=== PATIENT | female | born 1995 | race Caucasian/White ===

== ENCOUNTER 2018-05-09 07:17 | Emergency (ER) | payer OTHER ==
[2018-05-09 07:21] VITALS: BP 113/62; PULSE 94; TEMP 99.4; BMI 23.0
--- NOTE | 2018-05-09 08:04 | PDOC ---
History of Present Illness - General Chief Complaint: Pain Stated Complaint: 9 WEEKS PREGNANCT/ABDOMINAL PAIN Time Seen by Provider: 05/09/18 08:04 Past History - Past Medical History Allergies/Adverse Reactions: Allergies Allergy/AdvReac Type Severity Reaction Status Date / Time No Known Allergies Allergy Verified 05/09/18 07:21 Home Medications: Ambulatory Orders Pnv with Ca,No.71/Iron/FA [ Vitamin Tablet] 1 each PO DAILY 11/13/14 Acetaminophen [Tylenol .Regular Strength -] 650 mg PO Q3H PRN #20 tablet Benzocaine [Americaine 20% [place] -] 1 spray TP PRN PRN #1 spraybtl 12/06/14 Ferrous Sulfate [Feosol] 325 mg PO BID #60 ud 12/06/14 Ibuprofen [Motrin -] 200 mg PO Q4H PRN #20 tablet 12/06/14 Vitamins (Sjr) - 1 tab PO DAILY #30 tablet 12/06/14 Witch Zandra 50% (Tucks) [Tucks Pads -] 1 pad TP PRN PRN #1 pad 12/06/14 Asthma: No Cancer: No Cardiac Disorders: No COPD: No Diabetes: No HTN: No Seizures: No Thyroid Disease: No - Reproductive History Therapeutic (s) & number: No - Immunization History Immunization Up to Date: Yes - Suicide/Smoking/Psychosocial Hx Smoking Status: No Smoking History: Never smoked Have you smoked in the past 12 months: No Number of Cigarettes Smoked Daily: 0 Information on smoking cessation initiated: No Hx Alcohol Use: No Drug/Substance Use Hx: No Substance Use Type: None Hx Substance Use Treatment: No *Physical Exam - Vital Signs Last Vital Signs Temp Pulse Resp BP Pulse Ox 99.4 F 94 H 16 113/62 100 05/09/18 07:18 05/09/18 07:18 05/09/18 07:18 05/09/18 07:18 05/09/18 07:18
--- NOTE | 2018-05-09 08:13 | PDOC ---
History of Present Illness - General Chief Complaint: Pain Stated Complaint: 9 WEEKS PREGNANCT/ABDOMINAL PAIN Time Seen by Provider: 05/09/18 08:04 History Source: Patient Exam Limitations: No Limitations - History of Present Illness Initial Comments: 05/09/18 08:21 This is a 22 yo F LMP March 09, 2018 no significant PMH She presents to the ER with a complaint of upper abdominal pain since last night with spotting Pain is cramping, stabbing, intermittent, sudden onset, Was 10/10 now 8/10, worsens when she bends forward No prior episodes like this Spotting was noted at 4am when she went to the bathroom, noted it when she wiped Denies CP, SOB, N, D, Fevers, Dysuria Tried drinking tea and threw it up No heavy lifting, last sexual activity 1 week ago Seen bt [employer] 1 week ago PMH: denies PSH: denies No STI, no fibroids, no cysts Meds: denies ALL: NKDA Social: ROS: GENERAL/CONSTITUTIONAL: No: fever, chills, weakness, loss of appetite. HEAD, EYES, EARS, NOSE AND THROAT: No: change in vision, ear pain, discharge, sore throat, throat swelling. CARDIOVASCULAR: No: chest pain, lightheadedness, palpitations, syncope RESPIRATORY: No: cough, shortness of breath, wheezing, hemoptysis, stridor. GASTROINTESTINAL: Yes: Abdominal pain, vomiting x 1 No: nausea, diarrhea, GENITOURINARY: No: dysuria, hematuria, frequency, urgency, flank pain. MUSCULOSKELETAL: No: back pain, neck pain, joint pain, muscle swelling or pain SKIN AND BREASTS: No: lesions, pallor, rash or easy bruising. NEUROLOGIC: No: headache, vertigo, paresthesias, weakness ENDOCRINE: No: unexplained weight gain or loss HEMATOLOGIC/LYMPHATIC: No: anemia, easy bleeding, swelling nodes. PE: GENERAL: The patient is in no acute distress. HEAD: Normal EYES: PERRLA, EOMI, sclera anicteric, conjunctiva clear. ENT: Ears normal, nares patent, oropharynx clear without exudates. Moist mucous membranes. NECK: Normal range of motion, supple LUNGS: Breath sounds equal, clear to auscultation bilaterally. No wheezes, and no crackles. HEART:Regular rate and rhythm, normal S1 and S2 without murmur, rub or gallop. ABDOMEN: Soft, TTP LLQ/epigastric tenderness, No involuntary guarding, no rebound. EXTREMITIES: Normal range of motion NEUROLOGICAL: Cranial nerves II through XII grossly intact. Normal speech. No focal neurological deficits. MUSCULOSKELETAL: Back non-tender to palpation, no CVA tenderness SKIN: Warm, Dry, normal turgor, no rashes or lesions noted. 05/09/18 08:31 05/09/18 08:34 05/09/18 09:30 Past History - Past Medical History Allergies/Adverse Reactions: Allergies Allergy/AdvReac Type Severity Reaction Status Date / Time No Known Allergies Allergy Verified 05/09/18 07:21 Home Medications: Ambulatory Orders Pnv with Ca,No.71/Iron/FA [ Vitamin Tablet] 1 each PO DAILY 11/13/14 Cephalexin [Keflex] 500 mg PO Q6H #12 capsule 05/09/18 Metoclopramide HCl [Reglan] 10 mg PO BID PRN #10 tablet 05/09/18 No122/Iron/Folic Acid [ Multi Tablet] 1 each PO DAILY #60 tablet 05/09/18 Asthma: No Cancer: No Cardiac Disorders: No COPD: No Diabetes: No HTN: No Seizures: No Thyroid Disease: No - Reproductive History Therapeutic (s) & number: No - Immunization History Immunization Up to Date: Yes - Suicide/Smoking/Psychosocial Hx Smoking Status: No Smoking History: Never smoked Have you smoked in the past 12 months: No Number of Cigarettes Smoked Daily: 0 Information on smoking cessation initiated: No Hx Alcohol Use: No Drug/Substance Use Hx: No Substance Use Type: None Hx Substance Use Treatment: No *Physical Exam - Vital Signs Last Vital Signs Temp Pulse Resp BP Pulse Ox 99.4 F 94 H 16 113/62 100 05/09/18 07:18 05/09/18 07:18 05/09/18 07:18 05/09/18 07:18 05/09/18 07:18 ED Treatment Course - LABORATORY CBC & Chemistry Diagram: 05/09/18 08:51 05/09/18 08:51 Medical Decision Making - Medical Decision Making 05/09/18 09:30 Laboratory Tests 05/09/18 08:51 WBC 9.7 Hgb 12.7 Hct 36.1 D Plt Count 186 D 05/09/18 10:26 Laboratory Tests 05/09/18 05/09/18 08:51 08:51 Beta HCG, Quant 38655.4 Urine Ketones Negative Urine Blood Negative Ur Leukocyte Esterase Trace Urine WBC (Auto) 3 Urine RBC (Auto) 1 US 05/09/18 10:28 Laboratory Tests 05/09/18 08:51 Blood Type O POSITIVE 05/09/18 11:[address] Mccarthy Pt US demonstrates 9 week gestation, FHR 150, Probable failed twin gestation moderate subchorionic hemorrage Right ovary with cyst, nml flow Left ovary nml vascular flow Call placed to Tana Fleming pt is consultant I have reviewed this patient's case with the nurse Radha They are awaiting her call for an appointment within 1 week *DC/Admit/Observation/Transfer Diagnosis at time of Disposition: Vaginal bleeding in , Abdominal pain affecting - Discharge Dispostion Disposition: HOME Condition at time of disposition: Stable Decision to Admit order: No - Prescriptions Prescriptions: Cephalexin [Keflex] 500 mg PO Q6H #12 capsule Metoclopramide HCl [Reglan] 10 mg PO BID PRN #10 tablet PRN Reason: Nausea No122/Iron/Folic Acid [ Multi Tablet] 1 each PO DAILY #60 tablet - Referrals Referrals: Mallory Fleming MD [Certified Nurse Media Marketing Specialist] - - Patient Instructions Printed Discharge Instructions: DI for Hyperemesis Gravidarum, Vaginal Bleeding During , DI for Abdominal Pain -- Early Additional Instructions: Ms Vazquez Thank you for coming in to the ER today Please be sure to follow up with Dr Tana Fleming You will need a repeat Ultrasound within 1 week return to the ER IMMEDIATELY for severe pain, heavy vaginal bleeding - saturating 2 pads/hour x 2 hours, dizziness, lightheadedness, any other concerns You can take reglan if needed for severe nausea, but start with trying tea - Post Discharge Activity
[2018-05-09] MEDS ORDERED: METOCLOPRAMIDE HCL INJECTION 10 MG/2 ML VIAL IVPUSH ONE (08:39)
[2018-05-09] MEDS ORDERED: SODIUM CHLORIDE 1,000 ML IV STA (08:39)
[2018-05-09 09:06] LABS: BASO % 0.3 % (0-2.0); EOS % 0.3 % (0-4.5); HEMATOCRIT 36.1 % (32.4-45.2); HEMOGLOBIN 12.7 GM/dL (10.7-15.3); LYMPH % 9.3 % (8-40); MCH 30.3 pg (25.7-33.7); MCHC 35.3 g/dl (32.0-36.0); MEAN PLT VOLUME 9.7 fl (7.5-11.1); MONO % 5.3 % (3.8-10.2); NEUT % 84.8 % (42.8-82.8); PLATELET COUNT 186 K/MM3 (134-434); RDW 12.8 % (11.6-15.6); WHITE BLOOD COUNT 9.7 K/mm3 (4.0-10.0)
[2018-05-09 09:24] LABS: URINE APPEARANCE SLCLOUDY; URINE BILIRUBIN NEGATIVE (<2.0 mg/dL); URINE COLOR YELLOW; URINE GLUCOSE (UA) NEGATIVE (NEGATIVE); URINE KETONE NEGATIVE (NEGATIVE); URINE LEUK ESTERASE TRACE (NEGATIVE); URINE NITRITE NEGATIVE (NEGATIVE); URINE PROTEIN NEGATIVE (NEGATIVE); URINE UROBILINOGEN NEGATIVE mg/dL (0.2-1.0)
[2018-05-09 09:34] LABS: EPI CELLS RARE /HPF (FEW); URINE BACTERIA RARE /hpf (NONE SEEN); URINE MUCUS RARE
[2018-05-09 09:50] LABS: ALBUMIN 3.5 g/dl (3.4-5.0); ANION GAP 11 MMOL/L (8-16); BLOOD UREA NITROGEN 8 mg/dL (7-18); CALCIUM 8.7 mg/dL (8.5-10.1); CHLORIDE 105 mmol/L (98-107); CO2 22 mmol/L (21-32); GLUCOSE,RANDOM 87 mg/dL (74-106); POTASSIUM 3.8 mmol/L (3.5-5.1); SODIUM 138 mmol/L (136-145)
[2018-05-09 10:10] LABS: ALK PHOS 46 U/L (45-117); BILIRUBIN,TOTAL 0.5 mg/dL (0.2-1.0); CREATININE 0.3 mg/dL (0.55-1.02); SGOT/AST 16 U/L (15-37); SGPT/ALT 18 U/L (12-78); TOT PROT 6.9 g/dl (6.4-8.2)
[2018-05-09] MEDS ORDERED: ACETAMINOPHEN 325 MG TABLET (FP) PO ONE (10:28)
[2018-05-09] MEDS ORDERED: RANITIDINE HCL 150 MG TABLET (FP) PO ONE (10:29)
[2018-05-09] MEDS ORDERED: METOCLOPRAMIDE HCL INJECTION 10 MG/2 ML VIAL ONE (10:43)
[2018-05-09] MEDS ORDERED: ACETAMINOPHEN 325 MG TABLET (FP) ONE (11:13)
[2018-05-09] MEDS ORDERED: RANITIDINE HCL 150 MG TABLET (FP) ONE (11:13)
== END 2018-05-09 12:33 | disposition home or self-care (01) ==
LOC: JER 07:17
PROC: 3E0337Z Introduction of Electrolytic and Water Balance Substance into Peripheral Vein, Percutaneous Approach (ICD-10-PCS; principal; 2018-05-09)
DX: O26.891 Other specified pregnancy related conditions, first trimester (principal); O20.8 Other hemorrhage in early pregnancy; Z3A.09 9 weeks gestation of pregnancy
CPT/HCPCS: 36415; 76817-TC; 80053; 81003; 81015; 84702; 85025; 86850; 86900; 86901; 87086; 96360; 96361; 99282-25; J7030

== ENCOUNTER 2018-11-24 03:28 | Inpatient (IN) | payer OTHER ==
[2018-11-24] MEDS ORDERED: PROMETHAZINE HCL 25 MG/1 ML VIAL IVPB ONE (07:27)
[2018-11-24] MEDS ORDERED: BUTORPHANOL TARTRATE 1 MG/ML VIAL IVPUSH PRN (07:27)
--- NOTE | 2018-11-24 07:34 | HP ---
Past Medical History - Primary Care Physician PCP:: Bay Harris - Admission Chief Complaint: 37.4 weeks, labor History of Present Illness: 23 yo f g 2 p1 0 0 1, edc 12/11/18 , 37.4 weeks, c/o contraction, no rom, fhr cat 1, irregular contraction History Source: Patient Limitations to Obtaining History: No Limitations - Past Medical History ...: 2 ...Para: 1 ...Term: 1 ...: 0 ...EDC by [facility]: 12/11/18 Infectious Disease: Yes: STD's (chlamydia treated on 05/2014, repeat culture neg) - Past Surgical History Past Surgical History: Yes: Tonsillectomy (age 13 yrs) Hx Myomectomy: No Hx Transabdominal Cerclage: No - Smoking History Smoking history: Never smoked Have you smoked in the past 12 months: No Aproximately how many cigarettes per day: 0 - Alcohol/Substance Use Hx Alcohol Use: No - Social History Usual Living Arrangement: Yes: With Spouse History of Recent Travel: No Home Medications - Allergies Allergies/Adverse Reactions: Allergies Allergy/AdvReac Type Severity Reaction Status Date / Time No Known Allergies Allergy Verified 10/09/18 17:15 - Home Medications Home Medications: Ambulatory Orders Pnv with Ca,No.71/Iron/FA [ Vitamin Tablet] 1 each PO DAILY 11/13/14 Cephalexin [Keflex] 500 mg PO Q6H #12 capsule 05/09/18 Metoclopramide HCl [Reglan] 10 mg PO BID PRN #10 tablet 05/09/18 No122/Iron/Folic Acid [ Multi Tablet] 1 each PO DAILY #60 tablet 05/09/18 Review of Systems - Review of Systems Constitutional: reports: No Symptoms Eyes: reports: No Symptoms HENT: reports: No Symptoms Neck: reports: No Symptoms Cardiovascular: reports: No Symptoms Respiratory: reports: No Symptoms Gastrointestinal: reports: No Symptoms Genitourinary: reports: No Symptoms Breasts: reports: No Symptoms Reported Musculoskeletal: reports: No Symptoms Integumentary: reports: No Symptoms Neurological: reports: No Symptoms Endocrine: reports: No Symptoms Hematology/Lymphatic: reports: No Symptoms Psychiatric: reports: No Symptoms Physical Exam - Maternity Constitutional: Yes: Well Nourished, No Distress, Calm Eyes: Yes: WNL, Conjunctiva Clear, EOM Intact HENT: Yes: WNL, Atraumatic, Normocephalic Neck: Yes: WNL, Supple, Trachea Midline Cardiovascular: Yes: WNL, Regular Rate and Rhythm Breast(s): Yes: WNL - Abdominal Exam/OB Fundal Height: 38 Number of Fetuses: Single Presentation: Vertex Contractions: Yes Regularity: Irregular Intensity: Mod/Strong Monitor Mode: External Heart Rate Location: [facility] Category: I Accelerations: Uniform - Vaginal Exam/OB Vaginal Bleediing: No Dilatation (cm): 3 cm Effacement (%): 80 Amniotic Membrane Status: Bulging Presentation: Vertex/Position Station: -2 - Physical Exam Musculoskeletal: Yes: WNL Edema: Yes Edema: LLE: Trace, RLE: Trace Deep Tendon Reflex Grade: Normal +2 Psychiatric: Yes: WNL Hemorrhage Risk Assessment - Risk Factors Medium Risk Factors: Yes: None High Risk Factors: Yes: None Risk Score: 1 Risk Level: Medium Risk Problem List - Problems (1) with 37 weeks completed gestation Code(s): Z3A.37 - 37 WEEKS GESTATION OF (2) Labor established Code(s): ILR6782 - Assessment/Plan admit, fhm pain management
[2018-11-24 09:25] VITALS: BMI 23.8
[2018-11-24 10:40] LABS: BASO % 0.6 % (0-2.0); EOS % 0.2 % (0-4.5); HEMATOCRIT 31.9 % (32.4-45.2); LYMPH % 19.6 % (8-40); MCH 27.7 pg (25.7-33.7); MCHC 34.5 g/dl (32.0-36.0); MEAN CELL VOLUME 80.5 fl (80-96); MEAN PLT VOLUME 11.8 fl (7.5-11.1); MONO % 5.3 % (3.8-10.2); NEUT % 74.3 % (42.8-82.8); PLATELET COUNT 136 K/MM3 (134-434); RBC 3.96 M/mm3 (3.60-5.2); RDW 13.7 % (11.6-15.6); WHITE BLOOD COUNT 7.4 K/mm3 (4.0-10.0)
[2018-11-24 10:52] LABS: INR 0.92 (0.83-1.09); PROTHROMBIN TIME (PATIENT) 10.8 SEC (9.7-13.0)
[2018-11-24 10:55] LABS: ACTIVATED PTT 26.3 SECONDS (25.2-36.5)
[2018-11-24 11:24] LABS: ANION GAP 7 MMOL/L (8-16); BLOOD UREA NITROGEN 7 mg/dL (7-18); CALCIUM 8.4 mg/dL (8.5-10.1); CHLORIDE 108 mmol/L (98-107); CO2 21 mmol/L (21-32); CREATININE 0.5 mg/dL (0.55-1.3); GLUCOSE,RANDOM 98 mg/dL (74-106); POTASSIUM 3.9 mmol/L (3.5-5.1); SODIUM 136 mmol/L (136-145)
[2018-11-24] MEDS ORDERED: DEXTROSE 5%-LACTATED RINGERS 1,000 ML IV SCH (13:00)
[2018-11-24] MEDS ORDERED: OXYTOCIN 30 UNITS in 0.9% NS 30 UNIT/500 ML INFUS.BAG IVPB ONE (15:05)
--- NOTE | 2018-11-24 16:40 | PN ---
Progress Note (short form) - Note Progress Note: 3:03 pm cx 5 cm 80 vx -2 mi,bulging , arom, clear, fhr cat 1 , irregular contraction, AROM, clear, fhr cat 1, advised pitocin stimularion, rba discussed Problem List - Problems (1) with 37 weeks completed gestation Code(s): Z3A.37 - 37 WEEKS GESTATION OF (2) Labor established Code(s): JCC6522 -
[2018-11-24] MEDS ORDERED: OXYTOCIN 30 UNITS in 0.9% NS 30 UNIT/500 ML INFUS.BAG IVPB SCH (16:45)
[2018-11-24] MEDS ORDERED: BUTORPHANOL TARTRATE 1 MG/ML VIAL ONE ×2 (19:24)
[2018-11-24] MEDS ORDERED: PROMETHAZINE HCL 25 MG/1 ML VIAL ONE (19:25)
--- NOTE | 2018-11-24 21:03 | PN ---
Progress Note (short form) - Note Progress Note: cx 7 cm 80 vx -1 mr , fhr cat 1, contraction q 2 min , Problem List - Problems (1) with 37 weeks completed gestation Code(s): Z3A.37 - 37 WEEKS GESTATION OF (2) Labor established Code(s): NCB7018 -
[2018-11-24] MEDS ORDERED: OXYTOCIN 20 UNITS in 0.9% NS 20 UNIT/1,000 ML INFUS.BAG IV ONE ×2 (21:52→23:13)
[2018-11-24] MEDS ORDERED: BISACODYL 10 MG SUPP.RECT RC PRN (22:37)
[2018-11-24] MEDS ORDERED: BENZOCAINE 28 GM HEMORRHOIDAL OINTMENT TP PRN (22:37)
[2018-11-24] MEDS ORDERED: METHYLERGONOVINE MALEATE 0.2 MG/1 ML AMP IM PRN (22:37)
[2018-11-24] MEDS ORDERED: D5W-LR W/ 20 UNITS OXYTOCIN 1,000 ML IV SCH (22:45)
[2018-11-24] MEDS ORDERED: OXYTOCIN 20 UNITS in 0.9% NS 20 UNIT/1,000 ML INFUS.BAG IV SCH (22:45)
[2018-11-24 23:27] LABS: ARTERIAL BLD GAS O2 SATURATION 85.5 % (95-98); ARTERIAL BLOOD GAS BASE EXCESS -5.3 meq/l (-2-2); ARTERIAL BLOOD GAS PCO2 39.1 mmHg (35-45); ARTERIAL BLOOD GAS PO2 45.8 mmHg (80-105)
[2018-11-24 23:30] LABS: VENOUS PC02 55.9 mmHg (41-51); VENOUS PO2 21.1 mmHg (30-40)
[2018-11-24 23:31] LABS: VENOUS PH 7.23 (7.31-7.41)
[2018-11-24 23:32] LABS: ARTERIAL BLOOD GAS pH 7.32 (7.35-7.45)
[2018-11-25] MEDS: ACETAMINOPHEN 325 MG TABLET (FP) PO PRN ×4 (00:44→20:18)
[2018-11-25] MEDS: IBUPROFEN 600 MG TABLET (FP) PO PRN ×4 (00:44→20:18)
[2018-11-25] MEDS: WITCH HAZEL 50% (TUCKS) 40 PAD/JAR PAD TP PRN ×2 (00:45→13:55)
[2018-11-25] MEDS: BENZOCAINE 20% 57 GM BOTTLE TP PRN ×2 (00:45→13:55)
[2018-11-25 06:54] LABS: BASO % 0.3 % (0-2.0); HEMOGLOBIN 9.7 GM/dL (10.7-15.3); LYMPH % 13.3 % (8-40); MCH 27.6 pg (25.7-33.7); MCHC 34.5 g/dl (32.0-36.0); MEAN PLT VOLUME 11.9 fl (7.5-11.1); MONO % 4.3 % (3.8-10.2); NEUT % 82.1 % (42.8-82.8); PLATELET COUNT 128 K/MM3 (134-434); RDW 13.9 % (11.6-15.6); WHITE BLOOD COUNT 11.3 K/mm3 (4.0-10.0)
[2018-11-25] MEDS: FERROUS SO4 325 MG TABLET (FP) PO SCH ×2 (08:48→17:35)
[2018-11-25] MEDS: PRENATAL VITAMINS W/ FOLIC ACID TABLET (FP) PO SCH (09:48)
--- NOTE | 2018-11-25 14:53 | PN ---
Progress Note (short form) - Note Progress Note: ppd 1 ,doing well, no excess vaginal bleeding CBC, BMP 11/25/18 06:30 11/24/18 08:56 Last Vital Signs Temp Pulse Resp BP Pulse Ox 97.8 F 93 H 20 114/53 L 11/25/18 14:00 11/25/18 14:00 11/25/18 14:00 11/25/18 14:00 abdomen soft, uterus firm , non tender lochia mild no calf tenderness plan ambulate , plan for d/c home in am Problem List - Problems (1) with 37 weeks completed gestation Code(s): Z3A.37 - 37 WEEKS GESTATION OF (2) Labor established Code(s): [id number] -
[2018-11-25] MEDS ORDERED: SENNOSIDES/DOCUSATE COMBO (SENNA PLUS) TABLET (UD) PO PRN (22:00)
[2018-11-26] MEDS: IBUPROFEN 600 MG TABLET (FP) PO PRN (04:17)
[2018-11-26] MEDS: ACETAMINOPHEN 325 MG TABLET (FP) PO PRN (04:18)
[2018-11-26] MEDS: FERROUS SO4 325 MG TABLET (FP) PO SCH (08:30)
--- NOTE | 2018-11-26 08:48 | DS ---
Physical Exam-CULTURAL ANTHROPOLOGY PROFESSOR Vital Signs: Vital Signs Temperature 98.9 F 11/25/18 22:00 Pulse Rate 82 11/25/18 22:00 Respiratory Rate 18 11/25/18 22:00 Blood Pressure 119/72 11/25/18 22:00 O2 Sat by Pulse Oximetry (%) Constitutional: Yes: Well Nourished, No Distress, Calm Eyes: Yes: WNL, Conjunctiva Clear, EOM Intact HENT: Yes: WNL, Atraumatic, Normocephalic Neck: Yes: WNL, Supple, Trachea Midline Cardiovascular: Yes: WNL, Regular Rate and Rhythm Respiratory: Yes: WNL, Regular, CTA Bilaterally Gastrointestinal: Yes: WNL ...Rectal Exam: Yes: WNL Renal/: Yes: WNL External Genitalia: Yes: Normal ....Post : Yes: Uterus firm, Uterus non-tender, Slight lochia rubra Breast(s): Yes: WNL Musculoskeletal: Yes: WNL Extremities: Yes: WNL Integumentary: Yes: WNL Neurological: Yes: WNL, Alert, Oriented ...Motor Strength: WNL Psychiatric: Yes: WNL, Alert, Oriented Labs: CBC, BMP 11/25/18 06:30 11/24/18 08:56 Delivery - Delivery Vaginal Delivery: Spontaneous (no complication) Type of Anesthesia: None Episiotomy/Laceration: 1st degree EBL (cc): 300 Delivery, Single - Stages of Labor Date 1st Stage Initiatied: 11/24/18 Time 1st Stage Initiated: 19:30 Date 2nd Stage Initiated: 11/24/18 Time 2nd Stage Initiated: 21:45 Date of Delivery: 11/24/18 Time of Delivery: 22:08 Time Placenta Delivered: 22:10 Placenta: Yes: Spontaneous - Condition of Hydraulic Repairer/Packaging Tech Present: No Infant Gender: Female Weight: 6 lb Position: Left, OA Total Hours ROM (Hrs/Mins): 7 HOURS/ 7 MINUTES - 1 Minute Total Score: 9 5 Minutes Total Score: 10 - [place] Feeding Plan Initial Plan: Elected not to breastfeed exclusively throughout hospitalization Discharge Summary Current Active Problems Labor established (Acute) with 37 weeks completed gestation (Acute) Procedures: Principal: Hospital Course: uneventful Condition: Good - Instructions Diet, Activity, Other Instructions: regular diet, no intercourse, follow up [facility] care 4 weeks , if fever, heavy vaginal bleeding call md Referrals: Bay Harris MD [Family Provider] - - Home Medications Comprehensive Discharge Medication List: Ambulatory Orders No122/Iron/Folic Acid [ Multi Tablet] 1 each PO DAILY #60 tablet 05/09/18 Ferrous Sulfate [Iron] 325 mg PO DAILY 11/24/18 Ibuprofen [Motrin -] 600 mg PO QID #28 tablet 11/25/18
[2018-11-26] MEDS: BENZOCAINE 20% 57 GM BOTTLE TP PRN (09:00)
[2018-11-26] MEDS: PRENATAL VITAMINS W/ FOLIC ACID TABLET (FP) PO SCH (10:30)
[2018-11-26 12:29] VITALS: BP 126/69; PULSE 67; TEMP 98.3
== END 2018-11-26 12:33 | disposition home or self-care (01) | DRG 560 ==
LOC: JDEL 03:28 → JLDR 07:15 → J3W 11-25 00:15
PROVIDERS: ADMIT Obstetrics & Gynecology; ATTEND Obstetrics & Gynecology
PROC: 0HQ9XZZ Repair Perineum Skin, External Approach (ICD-10-PCS; principal; 2018-11-24)
PROC: 10E0XZZ Delivery of Products of Conception, External Approach (ICD-10-PCS; 2018-11-24)
DX: O70.0 First degree perineal laceration during delivery (principal); Z3A.37 37 weeks gestation of pregnancy; Z37.0 Single live birth
CPT/HCPCS: 36415; 36600; 59409; 80048; 82803; 85025; 85610; 85730; 86593; 86850; 86900; 86901